=== PATIENT | male | born 1945 | race Caucasian/White ===

== ENCOUNTER 2016-06-23 04:51 | Emergency (ER) | payer MEDICARE ==
[~2016-06-23 04:51] MED LIST: CYCLOBENZAPRINE10 MG PO; ETODOLAC400 MG PO; GEMFIBROZIL600 MG PO; GUAIFENESIN400 MG PO; HYDROCORT-PRAM120 GM TOP; OXCARBAZEPINE150 M1 PO; TRAMADOL HCL50 MG PO; TYLENOL325 MG PO
[2016-06-23] MEDS ORDERED: COUMADIN2 M1 (05:38)
[2016-06-23] MEDS ORDERED: NATURAL VEGETA283 GM (05:39)
[2016-06-23] MEDS ORDERED: ASPIRIN81 M1 PO (05:39)
[2016-06-23] MEDS ORDERED: AMIODARONE HCL100 M1 PO (05:39)
[2016-06-23] MEDS ORDERED: LIDOPATCH1 EAC1 TP (05:40)
[2016-06-23] MEDS ORDERED: LOPRESSOR50 M1 PO (05:40)
[2016-06-23] MEDS ORDERED: PRILOSEC OTC20 M1 PO (05:41)
[2016-06-23] MEDS ORDERED: HYDROCODON-ACE1 EA16 PO (06:02)
== END 2016-06-23 06:14 ==
LOC: EDMED 04:51
DX: R51 Headache (principal)